=== PATIENT | female | born 1955 | race African-American/Black ===

== ENCOUNTER 2020-09-23 11:49 | Emergency (ER) | payer MEDICARE, MEDICAID ==
[~2020-09-23] VITALS: Ht 165.1 cm; Wt 100.0 kg
[~2020-09-23 11:49] MED LIST: AMLO-79 MT; ASPI-1497 MT; ATOR20TA MT; BENA20TA10 MT; CALC-1042 MT; CHOL200074 MT; DOCU250C14 MT; HYDR-4001 MT
[2020-09-23 12:44] LABS: CLARITY URINE CLEAR (CLEAR); COLOR URINE YELLOW (YELLOW); KETONES URINE TRACE (NEGATIVE); LEUKOCYTE ESTERASE URINE NEGATIVE (NEGATIVE); NITRITE URINE NEGATIVE (NEGATIVE); OCCULT BLOOD URINE 1+ (NEGATIVE); PH URINE 5.5 (4.5-8.0); PROTEIN URINE NEGATIVE (NEGATIVE); SPECIFIC GRAVITY URINE 1.022 (1.005-1.030); UROBILINOGEN URINE 0.2 E.U./dL (0.2-1.0)
[2020-09-23 12:54] LABS: BASOPHILS % 0.9 % (0.0-2.0); EOSINOPHILS % 2.5 % (0.0-5.0); HEMATOCRIT. 42.4 % (36.0-48.0); HEMOGLOBIN. 14.5 g/dL (12.0-16.0); LYMPHOCYTES % 28.6 % (20.0-50.0); MEAN CORPUSCULAR HEMOGLOBIN 29.8 pg (28.0-32.0); MEAN CORPUSCULAR VOLUME 87.1 fL (81.0-99.0); MEAN PLATELET VOLUME 8.3 fl (7.4-10.4); MONOCYTES % 6.8 % (2.0-8.0); NEUTROPHILS % 61.2 % (40.0-76.0); PLATELET 218 x1000/uL (130-400); RED BLOOD CELL COUNT 4.87 mill/uL (4.2-5.4); RED CELL DISTRIBUTION WIDTH 13.8 % (11.6-14.6)
[2020-09-23 13:00] LABS: CHLORIDE 108 mEq/L (98-107)
[2020-09-23 13:15] LABS: PROTHROMBIN TIME 10.8 sec (9.6-11.0)
[2020-09-23] MEDS ORDERED: KETOROLAC 30MG/ML VIAL IV SCH (15:00)
[2020-09-23] MEDS ORDERED: TRAM-529 MT (17:24)
[2020-09-23] MEDS ORDERED: ONDA8TAB13 MT (17:25)
[2020-09-23 17:35] VITALS: BP 170/80
== END 2020-09-23 17:42 | disposition home or self-care (01) ==
LOC: ER 11:49
DX: K80.20 Calculus of gallbladder without cholecystitis without obstruction (principal); F17.200 Nicotine dependence, unspecified, uncomplicated; I10 Essential (primary) hypertension; Z88.0 Allergy status to penicillin; Z79.899 Other long term (current) drug therapy; Z79.82 Long term (current) use of aspirin; Z98.890 Other specified postprocedural states; Z90.710 Acquired absence of both cervix and uterus
CPT/HCPCS: 36415; 76705; 76856; 80053; 81003; 83690; 85025; 85610; 96374; 99285; J1885

== ENCOUNTER 2021-08-06 14:43 | Emergency (ER) | payer MEDICARE, MEDICAID ==
[~2021-08-06] VITALS: Ht 165.1 cm; Wt 102.0 kg
[~2021-08-06 14:43] MED LIST changes: +ONDA8TAB13 MT; +TRAM-529 MT
[2021-08-06] MEDS ORDERED: ACETAMINOPHEN 500MG TABLET PO ONE (15:15)
[2021-08-06] MEDS ORDERED: MELO-104 MT (16:01)
[2021-08-06 16:40] VITALS: BP 141/74
== END 2021-08-06 16:46 | disposition home or self-care (01) ==
LOC: ER 15:14
DX: M25.561 Pain in right knee (principal); I10 Essential (primary) hypertension; Z90.710 Acquired absence of both cervix and uterus; Z79.899 Other long term (current) drug therapy; Z88.0 Allergy status to penicillin
CPT/HCPCS: 73562; 93971; 99284; L1830